=== PATIENT | male | born 1955 | race African-American/Black ===

== ENCOUNTER 2024-01-04 18:44 | Emergency (ER) | payer BC ==
[~2024-01-04] VITALS: Ht 177.8 cm; Wt 113.4 kg
[2024-01-04 18:52] VITALS: O2SAT 99
[2024-01-04 19:21] LABS: BASOPHILS % 0.5 % (0.0-2.0); EOSINOPHILS % 4.2 % (0.0-5.0); HEMATOCRIT. 40.4 % (42.0-52.0); LYMPHOCYTES % 44.2 % (20.0-50.0); MEAN CORPUSCULAR HEMOGLOBIN 32.7 pg (28.0-32.0); MEAN CORPUSCULAR HGB CONC 34.6 g/dL (31.0-37.0); MEAN CORPUSCULAR VOLUME 94.4 fL (80.0-94.0); MEAN PLATELET VOLUME 8.7 fl (7.4-10.4); MONOCYTES % 8.3 % (2.0-8.0); NEUTROPHILS % 42.8 % (40.0-76.0); PLATELET 213 x1000/uL (130-400); RED BLOOD CELL COUNT 4.28 mill/uL (4.7-6.1); RED CELL DISTRIBUTION WIDTH 12.9 % (11.6-14.6)
[2024-01-04 19:25] LABS: CHLORIDE 105 mEq/L (98-107); POTASSIUM 3.5 mEq/L (3.5-5.1); SODIUM 139 mEq/L (136-145)
[2024-01-04 19:26] LABS: CARBON DIOXIDE 26 mEq/L (21-32)
[2024-01-04 19:27] LABS: CALCIUM 9.6 mg/dL (8.7-10.4)
[2024-01-04 19:31] LABS: CREATININE 0.9 mg/dL (0.6-1.3); GLUCOSE 95 mg/dL (70-105)
[2024-01-04 19:32] LABS: UREA NITROGEN BLOOD 8 mg/dL (9-23)
[2024-01-04 20:01] LABS: CLARITY URINE CLEAR (CLEAR); COLOR URINE YELLOW (YELLOW); GLUCOSE URINE NEGATIVE (NEGATIVE); KETONES URINE NEGATIVE (NEGATIVE); LEUKOCYTE ESTERASE URINE NEGATIVE (NEGATIVE); NITRITE URINE NEGATIVE (NEGATIVE); OCCULT BLOOD URINE NEGATIVE (NEGATIVE); PH URINE 6.5 (4.5-8.0); PROTEIN URINE NEGATIVE (NEGATIVE); SPECIFIC GRAVITY URINE 1.014 (1.005-1.030); UROBILINOGEN URINE 0.2 E.U./dL (0.2-1.0)
[2024-01-04] MEDS ORDERED: POLY119P2 MT (21:13)
[2024-01-04 21:32] VITALS: BP 180/90; PULSE 61; RESP 16; TEMP 98.2
== END 2024-01-04 21:33 | disposition home or self-care (01) ==
LOC: ER 18:44
DX: R10.30 Lower abdominal pain, unspecified (principal); K59.00 Constipation, unspecified; K92.1 Melena; I10 Essential (primary) hypertension
CPT/HCPCS: 36415; 71045; 80048; 81003; 85025; 86850; 86900; 93005; 99285